=== PATIENT | male | born 1970 | race Caucasian/White ===

== ENCOUNTER 2018-05-18 16:54 | Emergency (ER) | payer MEDICAID, OTHER ==
[~2018-05-18] VITALS: Ht 175.3 cm; Wt 74.8 kg
[2018-05-18 17:17] VITALS: BP 115/71
== END 2018-05-18 17:00 | disposition home or self-care (01) ==
LOC: ER 17:00
DX: M25.542 Pain in joints of left hand (principal); M25.552 Pain in left hip; V23.4XXA Motorcycle driver injured in collision with car, pick-up truck or van in traffic accident, initial encounter; Y93.55 Activity, bike riding; Y92.488 Other paved roadways as the place of occurrence of the external cause; Y99.8 Other external cause status
CPT/HCPCS: 73130; 73502

== ENCOUNTER 2021-07-01 14:59 | Emergency (ER) | payer SELFPAY ==
[~2021-07-01] VITALS: Ht 175.3 cm; Wt 81.6 kg
[2021-07-01] MEDS ORDERED: cefTRIAXone SOD 500 MG VL IM ONE (19:15)
[2021-07-01] MEDS ORDERED: HYDROcodone-ACET 10/325MG TAB PO ONE (19:15)
[2021-07-01] MEDS ORDERED: CEPH-322 PO ×2 (19:22→19:51)
[2021-07-01] MEDS ORDERED: IBU600T PO ×2 (19:22→19:51)
[2021-07-01 19:50] VITALS: BP 149/71
== END 2021-07-01 20:28 | disposition home or self-care (01) ==
LOC: ER 14:59
DX: L03.116 Cellulitis of left lower limb (principal); F12.10 Cannabis abuse, uncomplicated; F15.10 Other stimulant abuse, uncomplicated
CPT/HCPCS: 96372; 99283; J0696

== ENCOUNTER 2022-04-25 16:25 | Emergency (ER) | payer SELFPAY ==
[~2022-04-25] VITALS: Ht 175.3 cm; Wt 89.9 kg
[~2022-04-25 16:25] MED LIST: CEPH-322 PO; IBU600T PO
[2022-04-25 16:55] VITALS: BP 136/96
== END 2022-04-25 22:36 | disposition left against medical advice (07) ==
LOC: ER 16:25
DX: Z48.01 Encounter for change or removal of surgical wound dressing (principal); Z53.21 Procedure and treatment not carried out due to patient leaving prior to being seen by health care provider

== ENCOUNTER 2024-01-28 11:10 | Emergency (ER) | payer MEDICAID ==
[~2024-01-28] VITALS: Ht 175.3 cm; Wt 72.5 kg
[~2024-01-28 11:10] MED LIST changes: -CEPH-322 PO; +CEPH250C PO
[2024-01-28 12:53] VITALS: BP 98/70; PULSE 80; RESP 18; TEMP 98.7; O2SAT 99
[2024-01-28] MEDS: cefTRIAXone SOD 1,000 MG VL IM ONE (13:20)
[2024-01-28] MEDS ORDERED: AUG875T PO (13:24)
== END 2024-01-28 13:31 | disposition home or self-care (01) ==
LOC: ER 11:10
DX: S51.852A Open bite of left forearm, initial encounter (principal); W54.0XXA Bitten by dog, initial encounter; Y93.89 Activity, other specified; Y92.89 Other specified places as the place of occurrence of the external cause; Y99.8 Other external cause status
CPT/HCPCS: 73090; 96372; 99283; J0696

== ENCOUNTER → 2024-02-03 | Emergency (ER) | payer MEDICAID ==
[~2024-02-03] VITALS: Ht 175.3 cm; Wt 71.0 kg
[~2024-02-03] MED LIST changes: +AUG875T PO; +BACDST PO; +CLIN1CAP70 PO; +IBUP1TAB5 PO
[2024-02-03 11:46] VITALS: BP 117/83; PULSE 85; RESP 18; TEMP 97.9; O2SAT 97
== END | disposition left against medical advice (07) ==
LOC: ER 09:31
DX: S51.852A Open bite of left forearm, initial encounter (principal); F12.90 Cannabis use, unspecified, uncomplicated; F15.90 Other stimulant use, unspecified, uncomplicated; Z79.1 Long term (current) use of non-steroidal anti-inflammatories (NSAID); Z79.899 Other long term (current) drug therapy; W54.0XXA Bitten by dog, initial encounter; Y93.89 Activity, other specified; Y92.89 Other specified places as the place of occurrence of the external cause; Y99.8 Other external cause status